=== PATIENT | female | born 1995 | race Caucasian/White ===

== ENCOUNTER 2018-11-20 17:40 | Emergency (ER) | payer SELFPAY ==
--- NOTE | 2018-11-20 17:55 | EDM.PDOC ---
ED HPI GENERAL MEDICAL PROBLEM - General Stated Complaint: BRUISED ELLBOW Time Seen by Provider: 11/20/18 17:40 Source of Information: Reports: Patient History Limitations: Reports: No Limitations - History of Present Illness INITIAL COMMENTS - FREE TEXT/NARRATIVE: 23 y.o.w.tai came to the ed 3 days after she slipped on ice and fell onto her right elbow. She did not have a ride and could not come to te ed/work. Her supervisor rework asked her to come to the ED today to check the elbow. Pt had FROM of her elbow, no pain, no discomfort. The r was a minor bruice at her right elbow, however. No other acute medical issues. BP 122/80 Pulse 108 RR 17 Pulse ox 100% on RA Temp 36.8 Onset Date: 11/18/18 Onset Time: 07:00 Duration: Day(s):, Improving Location: Reports: Upper Extremity, Right Quality: Reports: Dull Severity: Mild Improves with: Reports: Rest Worsens with: Reports: Movement Context: Reports: Trauma Associated Symptoms: Reports: No Other Symptoms, Rash (mild vijay right elbow) - Related Data Allergies Allergy/AdvReac Type Severity Reaction Status Date / Time No Known Allergies Allergy Verified 11/20/18 19:13 Home Meds: Home Meds Birthcontrol Implant 11/20/18 [History] ED ROS GENERAL - Review of Systems Review Of Systems: See Below Constitutional: Reports: No Symptoms HEENT: Reports: No Symptoms Respiratory: Reports: No Symptoms Cardiovascular: Reports: No Symptoms Endocrine: Reports: No Symptoms GI/Abdominal: Reports: No Symptoms : Reports: No Symptoms Musculoskeletal: Reports: No Symptoms Skin: Reports: Bruising (right elbow medial aspect) Neurological: Reports: No Symptoms Psychiatric: Reports: No Symptoms Hematologic/Lymphatic: Reports: No Symptoms Immunologic: Reports: No Symptoms ED EXAM, SKIN/RASH Exam: See Below Exam Limited By: No Limitations General Appearance: Alert, WD/WN, No Apparent Distress Eye Exam: Bilateral Eye: Normal Inspection Ears: Normal External Exam Nose: Normal Inspection Throat/Mouth: Normal Inspection Head: Atraumatic Neck: Normal Inspection Respiratory/Chest: No Respiratory Distress Cardiovascular: Normal Peripheral Pulses Peripheral Pulses: 1+: Brachial (L) GI/Abdominal: Normal Bowel Sounds (Female) Exam: Deferred Rectal (Female) Exam: Deferred Back Exam: Normal Inspection, Full Range of Motion Extremities: Normal Range of Motion, Non-Tender, No Pedal Edema, Normal Capillary Refill, Other (ecchymosis right elbow med aspect 3 days old) Neurological: Alert, Oriented, CN II-XII Intact, Normal Cognition, Normal Gait Psychiatric: Normal Affect, Normal Mood Skin: Warm, Dry, Ecchymosis Location, Skin: Upper Extremity, Right Associated features: Warmth Lymphatic: No Adenopathy Course - Vital Signs Text/Narrative:: 23 y.o.w.f came to the ed 3 days after she slipped on ice and fell onto her right elbow. She did not have a ride and could not come to te ed/work. Her supervisor rework asked her to come to the ED today to check the elbow. Pt had FROM of her elbow, no pain, no discomfort. The r was a minor bruice at her right elbow, however. No other acute medical issues. BP 122/80 Pulse 108 RR 17 Pulse ox 100% on RA Temp 36.8 PE: WNWD W F with an Ecchymosis right elbow [id number], FROM of Elbow, no pain. Imaging: Not indicated Impression: Ecchymosis right elbow, fall last 11/18/2018 Tx: None Reexam: Pt had no pain/discomfort, just needed a work excuse slip for last Plan: D/C with instructions Last Recorded V/S: Last Vital Signs Temp 36.9 C 11/20/18 18:05 Pulse Resp 17 11/20/18 18:05 BP 122/80 11/20/18 18:05 Pulse Ox 100 11/20/18 18:05 Departure - Departure Time of Disposition: 17:51 Disposition: Home, Self-Care 01 Condition: Good Clinical Impression: Hematoma Fall Qualifiers: Encounter type: initial encounter Qualified Code(s): W19.XXXA - Unspecified fall, initial encounter - Discharge Information Referrals: eLx Carranza MD [Primary Care Provider] - Forms: ED Department Discharge, ED Return to Work/School Form Additional Instructions: Please apply ICE to the affected area, Take motrin for pain F/U, come back if your symptoms get worse acutely
== END 2018-11-20 18:07 | disposition home or self-care (01) ==
LOC: FB.ED 17:40
DX: S50.01XA Contusion of right elbow, initial encounter (principal); W00.0XXA Fall on same level due to ice and snow, initial encounter
CPT/HCPCS: 99282